=== PATIENT | female | born 1945 | race Caucasian/White ===

== ENCOUNTER 2016-04-25 09:40 | Day surgery (SDC) | payer MEDICARE, OTHER ==
[2016-04-25] MEDS ORDERED: Propofol 200 MG/20 ML SDV ONE (09:46)
[2016-04-25] MEDS ORDERED: Sodium Chloride 0.9% 5 ML Syringe FLUSH PRN (10:00)
[2016-04-25] MEDS ORDERED: Lactated Ringers 1,000 ML IV SCH (10:00)
--- NOTE | 2016-04-25 10:39 | PCM.PN ---
- General Info Date of Service: 04/25/16 - Review of Systems Systems Review Comment:: 70 y/o female here for screening colonoscopy. Her last colonoscopy was about 8 years ago. She denies any recent rectal bleeding. She denies any family history of colon cancer. I have discussed the proposed colonoscopy with the patient. Risks such as but not limited to bleeding and GI injury reviewed. She agrees to proceed. - Patient Data Vitals - most recent: Last Vital Signs Temp 97.2 F 04/25/16 09:56 Pulse 67 04/25/16 09:56 Resp 14 04/25/16 09:56 BP 120/80 04/25/16 09:56 Pulse Ox 97 04/25/16 09:56 Weight - most recent: 61.689 kg Med Orders - Current: Current Medications Lactated Ringer's (Ringers, Lactated) 1,000 mls @ 50 mls/hr IV ASDIRECTED BHARATHI Sodium Chloride (Syrex Flush) 5 ml FLUSH Q8HR PRN PRN Reason: Keep Vein Open - Problem List Review Problem List Initiated/Reviewed/Updated: Yes - My Orders Last 24 Hours: My Active Orders 04/25/16 07:49 Resuscitation Status Routine 04/25/16 10:00 Patient to Empty Bladder [RC] ASDIRECTED Peripheral IV Care [RC] . DIRECTED Verify Patient Consent Obtain [RC] ASDIRECTED Lactated Ringers [Ringers, Lactated] 1,000 ml IV ASDIRECTED Sodium Chloride 0.9% [Syrex Flush] 5 ml FLUSH Q8HR PRN Peripheral IV Insertion Adult [OM.PC] Routine 04/25/16 Breakfast Nothing Per Oral Diet [DIET] - Assessment Assessment:: Colon cancer screening - Plan Plan:: Colonoscopy
[2016-04-25] MEDS ORDERED: Propofol 200 MG/20 ML SDV IV ONE (10:51)
--- NOTE | 2016-04-25 11:28 | PCM.OPNOTE ---
- General Post-Op/Procedure Note Date of Surgery/Procedure: 04/25/16 Operative Procedure(s): Colonoscopy Findings: Moderate Sigmoid Diverticulosis Pre Op Diagnosis: Colon Cancer Screening Post-Op Diagnosis: Diverticulosis Anesthesia Technique: MAC Primary Surgeon: Nasir Lara Pathology: none Output, Urine Amount: 0 EBL in mLs: 0 Complications: None Condition: Good
--- NOTE | 2016-04-25 12:55 | OR ---
DATE OF SURGERY: 04/25/2016 SURGEON: Nasir Lara MD PREOPERATIVE DIAGNOSIS: Colon cancer screening. POSTOPERATIVE DIAGNOSIS: Diverticulosis. OPERATION PERFORMED: Colonoscopy. INDICATIONS FOR SURGERY: This 70-year-old female is referred for screening colonoscopy. It has been several years since her last colon exam. FINDINGS: The patient has a moderate degree of sigmoid diverticulosis, but the colon otherwise appears normal. PROCEDURE: The patient was taken to the operating room. She was given intravenous sedation and with her in the left lateral decubitus position, a digital rectal exam was performed showing no rectal masses. The Olympus colonoscope was inserted into the rectum. Retroflexed examination of the rectal canal was performed. The scope was then carefully advanced under direct visualization through the entire length of the colon until cecum was reached. This did take a careful manipulation because of some tortuosity, but the cecum was able to be safely reached. Cecal acquisition was confirmed by noting the normal internal cecal anatomy including the appendiceal orifice and the ileocecal valve. The ileocecal valve was then cannulated, and the terminal ilium was also examined and found to appear normal. The scope was then slowly withdrawn sequentially re-examining the colonic segments until the entire colon and rectum had been fully examined. The scope was then removed and the patient was taken from the operating room in satisfactory condition. ESTIMATED BLOOD LOSS: Zero. COMPLICATIONS: None. PROGNOSIS: Good. /[id number]/MODL
[2016-04-25 13:17] VITALS: BP 117/75
== END 2016-04-25 12:30 | disposition home or self-care (01) ==
LOC: KA.SDS 09:40
PROVIDERS: ATTEND Surgery
DX: Z12.11 Encounter for screening for malignant neoplasm of colon (principal); K57.30 Diverticulosis of large intestine without perforation or abscess without bleeding; K21.9 Gastro-esophageal reflux disease without esophagitis; F32.9 Major depressive disorder, single episode, unspecified; E78.5 Hyperlipidemia, unspecified; Z88.8 Allergy status to other drugs, medicaments and biological substances; Z90.49 Acquired absence of other specified parts of digestive tract; Z90.710 Acquired absence of both cervix and uterus; Z98.890 Other specified postprocedural states; Z79.899 Other long term (current) drug therapy
CPT/HCPCS: G0121; J2704; J7120; 00810